=== PATIENT | male | born 1935 | race Caucasian/White ===

== ENCOUNTER → 2018-03-04 | Outpatient (CLI) | payer MEDICARE, OTHER ==
[~2018-03-04] MED LIST: ASCO60LO PO; ASPI-496 PO; CALC600T4 PO; CHOL2000 PO; ESOM40CA PO; ETAN50DI2 INJ; HYDR1TAB20 PO; MAGN500C9 PO; NIAC1000 PO; POTA99TA8 PO; ROSU5TAB PO; VITA1TAB3 PO; cough medicine PO
== END | disposition home or self-care (01) ==
LOC: CFH 15:33
PROVIDERS: ATTEND Orthopaedic Surgery
DX: M94.262 Chondromalacia, left knee (principal); M94.261 Chondromalacia, right knee; M25.461 Effusion, right knee; M25.462 Effusion, left knee

== ENCOUNTER → 2018-06-02 | Outpatient (CLI) | payer MEDICARE, OTHER | END | disposition home or self-care (01) | LOC: CFH 06:41 | PROVIDERS: ATTEND Nurse Practitioner Family | DX: G31.9 Degenerative disease of nervous system, unspecified (principal) | CPT/HCPCS: 70551 ==

== ENCOUNTER → 2018-11-22 | Outpatient (CLI) | payer MEDICARE, OTHER ==
[2018-11-22 13:15] LABS: BASOPHILS # (AUTO) 0.01 x10^3/uL (0-0.1); BASOPHILS % (AUTO) 0 % (0-1); EOSINOPHILS # (AUTO) 0.07 x10^3/uL (0-0.4); EOSINOPHILS % (AUTO) 2 % (1-7); LYMPHOCYTES # (AUTO) 1.11 x10^3/uL (1-3.4); LYMPHOCYTES % (AUTO) 27 % (22-44); MD NO; MEAN CORPUSCULAR HEMOGLOBIN 30.1 pg (27.5-34.5); MEAN CORPUSCULAR HGB CONC 33.4 g/dL (33.2-36.2); MEAN PLATELET VOLUME 10.8 fL (7.4-10.4); MONOCYTES # (AUTO) 0.49 x10^3/uL (0.2-0.8); MONOCYTES % (AUTO) 12 % (2-9); NEUTROPHILS # (AUTO) 2.39 x10^3/uL (1.8-6.8); NEUTROPHILS % (AUTO) 59 % (42-75); PLATELET COUNT 122 x10^3/uL (130-400); RED BLOOD COUNT 4.46 x10^6/uL (4.38-5.82); RED CELL DISTRIBUTION WIDTH 15.2 % (9.4-14.8)
[2018-11-22 13:19] LABS: ALANINE AMINOTRANSFERASE 28 U/L (12-78); ALBUMIN 3.6 g/dL (3.4-5.0); ANION GAP 4 mmol/L (5-15); CALCIUM 8.6 mg/dL (8.5-10.1); CHLORIDE 106 mmol/L (98-107); CREATININE 0.86 mg/dL (0.7-1.3)
[2018-11-22 13:21] LABS: ALKALINE PHOSPHATASE 92 U/L (45-117); BILIRUBIN,TOTAL 1.5 mg/dL (0.2-1.0); TOTAL PROTEIN 6.9 g/dL (6.4-8.2)
== END | disposition home or self-care (01) ==
LOC: CFH 10:35
PROVIDERS: ATTEND Internal Medicine Cardiovascular Disease
DX: I10 Essential (primary) hypertension (principal); E78.2 Mixed hyperlipidemia
CPT/HCPCS: 36415; 80053; 85025

== ENCOUNTER 2019-10-31 12:23 | Outpatient (CLI) | payer MEDICARE, OTHER ==
[~2019-10-31 12:23] MED LIST changes: +REGADENOSON 0.4 MG/5 ML SYRINGE ONE
== END 2019-10-31 23:59 | disposition home or self-care (01) ==
LOC: CFH 12:23
PROVIDERS: ATTEND Internal Medicine Cardiovascular Disease
DX: I25.10 Atherosclerotic heart disease of native coronary artery without angina pectoris (principal)
CPT/HCPCS: 78452; 93017; A9502; J2785

== ENCOUNTER → 2020-04-23 | Outpatient (CLI) | payer MEDICARE, OTHER ==
[~2020-04-23] MED LIST changes: -CALC600T4 PO; +CALC600T60 PO; -REGADENOSON 0.4 MG/5 ML SYRINGE ONE
== END | disposition home or self-care (01) ==
LOC: CFH 12:46
PROVIDERS: ATTEND Internal Medicine Cardiovascular Disease
DX: I08.0 Rheumatic disorders of both mitral and aortic valves (principal); I25.10 Atherosclerotic heart disease of native coronary artery without angina pectoris; I10 Essential (primary) hypertension
CPT/HCPCS: 93306

== ENCOUNTER 2021-02-22 20:25 | Inpatient (IN) | payer MEDICARE, OTHER ==
[~2021-02-22] VITALS: Ht 175.3 cm; Wt 73.7 kg
--- NOTE | 2021-02-23 01:19 | NUR ---
PT WHEELED TO ROOM. PT A&OX4, AND C/O PAIN TO RIGHT HIP AREA. SAYS HIS PAIN IS NOT IN THE NORMAL SPOT, AFTER HE HAD A GROUND LEVEL FALL WHEN HE GOT OUT OF BED YESTERDAY. PT SAYS HE FELT DIZZY HE GOT UP TOO QUICKLY, AND THEN SAT BACK TO BED AND "SLID" DOWN TO THE FLOOR BUT HIT THE FLOOR ENOUGH TO CAUSE PAIN.
--- NOTE | 2021-02-23 06:22 | NUR ---
pt wheeled to restroom. pt able to use restroom independently. mri screening done, awaiting mri. no other needs at this time
--- NOTE | 2021-02-23 07:06 | NUR ---
REPORT GIVEN TO DAVINA CROWE
--- NOTE | 2021-02-23 08:10 | NUR ---
PT TO MRI WITH TECH TRANSPORT.
--- NOTE | 2021-02-23 09:41 | NUR ---
PT RTD FROM MRI. RESULTS PENDING, VSS AND CALL LIGHT W/I REACH. MEAL TRAY PROVIDED AFTER GETTING CLEARANCE FROM DR. MANRIQUEZ THAT PT CN EAT.
--- NOTE | 2021-02-23 11:09 | NUR ---
PT AWARE OF PLAN FOR ADMIT.
[2021-02-23] MEDS ORDERED: SODIUM CHLORIDE FLUSH 10ML SYR IVF ONE (11:30)
[2021-02-23] MEDS ORDERED: MORPHINE SULFATE 4 MG/ML, 1ML IVPush PRN (11:30)
[2021-02-23 11:56] LABS: ANION GAP 7 mmol/L (5-15); CALCIUM 8.5 mg/dL (8.5-10.1); CHLORIDE 100 mmol/L (98-107); CREATININE 0.67 mg/dL (0.7-1.3)
[2021-02-23 11:57] LABS: BASOPHILS % (AUTO) 0 % (0-1); EOSINOPHILS % (AUTO) 4 % (1-7); LYMPHOCYTES % (AUTO) 18 % (22-44); MEAN CORPUSCULAR HEMOGLOBIN 31.2 pg (27.5-34.5); MEAN CORPUSCULAR HGB CONC 33.4 g/dL (33.2-36.2); MEAN PLATELET VOLUME 9.7 fL (7.4-10.4); MONOCYTES % (AUTO) 13 % (2-9); NEUTROPHILS % (AUTO) 65 % (42-75); PLATELET COUNT 86 x10^3/uL (130-400); RED BLOOD COUNT 4.45 x10^6/uL (4.38-5.82); RED CELL DISTRIBUTION WIDTH 16.4 % (9.4-14.8)
[2021-02-23] MEDS ORDERED: FENTANYL PF 100 MCG/2ML ONE ×2 (12:52→13:54)
[2021-02-23] MEDS ORDERED: LABETALOL 5MG/ML, 20ML IV PRN (13:00)
[2021-02-23] MEDS ORDERED: HYDROmorphone 1 MG/ML, 1ML INJ IVPush PRN (13:00)
[2021-02-23] MEDS ORDERED: FENTANYL PF 100 MCG/2ML IV PRN (13:00)
[2021-02-23] MEDS ORDERED: ALBUTEROL SULFATE 2.5 MG/3 ML NPPB PRN (13:00)
[2021-02-23] MEDS ORDERED: OXYcodone 5 MG/5 ML ORAL.SOL UDC PO PRN (13:00)
[2021-02-23] MEDS ORDERED: PROMETHAZINE 25 MG/ML, 1ML IVPush PRN (13:00)
[2021-02-23] MEDS ORDERED: MIDAZOLAM 1 MG/ML, 2ML IV PRN (13:00)
[2021-02-23] MEDS ORDERED: ACETAMINOPHEN 325 MG TABLET PO PRN ×2 (13:00→17:30)
[2021-02-23] MEDS ORDERED: EPHEDRINE 50 MG/ML, 1ML ONE (13:11)
[2021-02-23] MEDS ORDERED: DEXAMETHASONE 4 MG/ML, 1ML ONE (13:30)
[2021-02-23] MEDS ORDERED: CEFAZOLIN 1,000 MG ONE (13:30)
[2021-02-23] MEDS ORDERED: ONDANSETRON 2MG/ML, 2ML ONE (13:30)
[2021-02-23] MEDS ORDERED: PROPOFOL 10 MG/ML, 20ML ONE (13:30)
[2021-02-23] MEDS ORDERED: OXYcodone 5 MG/5 ML ORAL.SOL UDC ONE (13:54)
[2021-02-23] MEDS ORDERED: hydrALAzine 20 MG/ML, 1ML ONE (14:11)
[2021-02-23] MEDS ORDERED: hydrALAzine 20 MG/ML, 1ML IV PRN (14:30)
[2021-02-23 16:03] LABS: INTERNATIONAL NORMALIZED RATIO 1.09 (0.93-1.1); PROTHROMBIN TIME 11.6 Seconds (9.6-11.5)
[2021-02-23] MEDS ORDERED: ENOXAPARIN 40 MG/0.4 ML SQ SCH ×2 (17:30→18:00)
[2021-02-23] MEDS ORDERED: morphine SULFATE 10 MG/ML, 1ML IVPush PRN (17:30)
[2021-02-23] MEDS ORDERED: ONDANSETRON ODT 4 MG PO PRN (17:30)
[2021-02-23] MEDS ORDERED: ONDANSETRON 2MG/ML, 2ML IVPush PRN (17:30)
[2021-02-23 18:23] VITALS: BP 132/67
[2021-02-23] MEDS: ENOXAPARIN 40 MG/0.4 ML SQ SCH (19:39)
[2021-02-23] MEDS ORDERED: ZOLPIDEM 5MG TABLET PO PRN (20:30)
[2021-02-23 20:34] VITALS: BP 120/62
[2021-02-23] MEDS: CEFAZOLIN PMX 1GM/50ML 50 ML IV SCH (21:42)
[2021-02-24 01:33] VITALS: BP 112/60
[2021-02-24] MEDS: CEFAZOLIN PMX 1GM/50ML 50 ML IV SCH (04:48)
[2021-02-24] MEDS: PANTOPRAZOLE 40MG TABLET PO SCH (05:18)
[2021-02-24 06:11] LABS: BASOPHILS % (AUTO) 0 % (0-1); CHLORIDE 97 mmol/L (98-107); EOSINOPHILS % (AUTO) 0 % (1-7); LYMPHOCYTES % (AUTO) 7 % (22-44); MEAN CORPUSCULAR HEMOGLOBIN 31.7 pg (27.5-34.5); MEAN CORPUSCULAR HGB CONC 33.6 g/dL (33.2-36.2); MEAN PLATELET VOLUME 9.6 fL (7.4-10.4); MONOCYTES % (AUTO) 9 % (2-9); NEUTROPHILS % (AUTO) 84 % (42-75); PLATELET COUNT 89 x10^3/uL (130-400); RED BLOOD COUNT 3.54 x10^6/uL (4.38-5.82); RED CELL DISTRIBUTION WIDTH 16.2 % (9.4-14.8)
[2021-02-24 06:18] LABS: ANION GAP 6 mmol/L (5-15); CALCIUM 8.4 mg/dL (8.5-10.1); CREATININE 0.86 mg/dL (0.7-1.3)
[2021-02-24 08:00] VITALS: BP 137/71
[2021-02-24] MEDS ORDERED: ENOXAPARIN 40 MG/0.4 ML SQ SCH (09:00)
[2021-02-24] MEDS: ASPIRIN 81 MG TABLET EC PO SCH (09:35)
[2021-02-24] MEDS: CALCIUM CARBONATE 500 MG TAB.CHEW PO SCH (09:36)
[2021-02-24] MEDS: CHOLECALCIFEROL 1,000 UNIT TABLET PO SCH (09:36)
[2021-02-24] MEDS: ASCORBIC ACID 500 MG TABLET PO SCH (09:36)
[2021-02-24] MEDS: ATORVASTATIN 20 MG TABLET PO SCH (13:00)
[2021-02-24 13:18] VITALS: BP 99/57
[2021-02-24] MEDS ORDERED: ESCI10TA10 PO (14:07)
[2021-02-24 14:15] VITALS: BP 120/63
[2021-02-24] MEDS: SODIUM CHLORIDE 0.9% 1,000 ML IV SCH (15:46)
[2021-02-24] MEDS: LORazepam 1MG TABLET PO PRN (15:54)
[2021-02-24 20:12] VITALS: BP 110/62
[2021-02-24] MEDS: ENOXAPARIN 40 MG/0.4 ML SQ SCH (20:19)
[2021-02-25 01:34] VITALS: BP 102/60
[2021-02-25] MEDS: SODIUM CHLORIDE 0.9% 1,000 ML IV SCH (04:08)
[2021-02-25] MEDS: PANTOPRAZOLE 40MG TABLET PO SCH (05:36)
[2021-02-25 05:48] LABS: ANION GAP 6 mmol/L (5-15); CALCIUM 8.2 mg/dL (8.5-10.1); CHLORIDE 101 mmol/L (98-107)
[2021-02-25 05:49] LABS: CREATININE 0.73 mg/dL (0.7-1.3)
[2021-02-25 07:20] VITALS: BP 135/63
[2021-02-25] MEDS: ASPIRIN 81 MG TABLET EC PO SCH (09:33)
[2021-02-25] MEDS: ATORVASTATIN 20 MG TABLET PO SCH (09:33)
[2021-02-25] MEDS: CHOLECALCIFEROL 1,000 UNIT TABLET PO SCH (09:34)
[2021-02-25] MEDS: ASCORBIC ACID 500 MG TABLET PO SCH (09:34)
[2021-02-25] MEDS: CALCIUM CARBONATE 500 MG TAB.CHEW PO SCH (09:34)
[2021-02-25] MEDS ORDERED: ESCITALOPRAM 10MG TABLET ONE (09:42)
[2021-02-25] MEDS: OXYcodone IR 5MG TABLET PO PRN ×2 (09:56→23:35)
[2021-02-25] MEDS: ESCITALOPRAM 10MG TABLET PO SCH (09:56)
[2021-02-25] MEDS ORDERED: FENTANYL PF 100 MCG/2ML ONE (10:35)
[2021-02-25] MEDS ORDERED: MIDAZOLAM 1 MG/ML, 5ML ONE (10:35)
[2021-02-25] MEDS ORDERED: VANCOMYCIN 1,000 MG ONE (10:36)
[2021-02-25] MEDS ORDERED: VANCOMYCIN 500 MG ONE (10:36)
[2021-02-25] MEDS ORDERED: LIDOCAINE 2%, 20ML ONE (10:36)
[2021-02-25 12:33] LABS: BASOPHILS % (AUTO) 0 % (0-1); EOSINOPHILS % (AUTO) 2 % (1-7); LYMPHOCYTES % (AUTO) 15 % (22-44); MEAN CORPUSCULAR HEMOGLOBIN 31.3 pg (27.5-34.5); MEAN CORPUSCULAR HGB CONC 33.2 g/dL (33.2-36.2); MEAN PLATELET VOLUME 9.5 fL (7.4-10.4); MONOCYTES % (AUTO) 13 % (2-9); NEUTROPHILS % (AUTO) 70 % (42-75); PLATELET COUNT 100 x10^3/uL (130-400); RED BLOOD COUNT 3.12 x10^6/uL (4.38-5.82); RED CELL DISTRIBUTION WIDTH 15.7 % (9.4-14.8)
[2021-02-25 12:45] VITALS: BP 105/58
[2021-02-25] MEDS ORDERED: MAGNESIUM HYDROXIDE 8%, 30ML UDC PO PRN (14:00)
[2021-02-25] MEDS ORDERED: SENNA/DOCUSATE TABLET PO PRN (14:00)
[2021-02-25] MEDS: ENOXAPARIN 40 MG/0.4 ML SQ SCH (19:54)
[2021-02-25 20:44] VITALS: BP 125/70
[2021-02-25] MEDS: LORazepam 1MG TABLET PO PRN (21:42)
[2021-02-26 01:00] VITALS: BP 127/53
[2021-02-26 05:21] LABS: ALBUMIN 2.5 g/dL (3.4-5.0); ANION GAP 7 mmol/L (5-15); CALCIUM 7.9 mg/dL (8.5-10.1); CHLORIDE 102 mmol/L (98-107); CREATININE 0.69 mg/dL (0.7-1.3)
[2021-02-26 05:25] LABS: BASOPHILS % (AUTO) 0 % (0-1); EOSINOPHILS % (AUTO) 3 % (1-7); LYMPHOCYTES % (AUTO) 21 % (22-44); MEAN CORPUSCULAR HEMOGLOBIN 31.7 pg (27.5-34.5); MEAN CORPUSCULAR HGB CONC 34.1 g/dL (33.2-36.2); MEAN PLATELET VOLUME 9.4 fL (7.4-10.4); MONOCYTES % (AUTO) 14 % (2-9); NEUTROPHILS % (AUTO) 62 % (42-75); PLATELET COUNT 80 x10^3/uL (130-400); RED BLOOD COUNT 2.63 x10^6/uL (4.38-5.82); RED CELL DISTRIBUTION WIDTH 15.8 % (9.4-14.8)
[2021-02-26] MEDS: PANTOPRAZOLE 40MG TABLET PO SCH (05:34)
[2021-02-26 08:00] VITALS: BP 102/51
[2021-02-26] MEDS: ASCORBIC ACID 500 MG TABLET PO SCH (09:10)
[2021-02-26] MEDS: CALCIUM CARBONATE 500 MG TAB.CHEW PO SCH (09:10)
[2021-02-26] MEDS: CHOLECALCIFEROL 1,000 UNIT TABLET PO SCH (09:10)
[2021-02-26] MEDS: ATORVASTATIN 20 MG TABLET PO SCH (09:11)
[2021-02-26] MEDS: ASPIRIN 81 MG TABLET EC PO SCH (09:11)
[2021-02-26] MEDS: ESCITALOPRAM 10MG TABLET PO SCH (09:11)
[2021-02-26 14:52] VITALS: BP 105/61
[2021-02-26] MEDS ORDERED: OXYC5TAB2 PO (16:42)
[2021-02-26] MEDS ORDERED: DOCU-131 PO (16:42)
== END 2021-02-26 16:50 | disposition home health service (06) | DRG 481 ==
LOC: ED 02-23 01:18 → OBSVTOIN 02-23 02:10 → EDIP 02-23 02:10 → 3N 02-23 11:22 → 4EST 02-23 18:05 → 5SO 02-24 13:15
PROVIDERS: ADMIT Emergency Medicine; ATTEND Family Medicine
PROC: 0QS706Z Reposition Left Upper Femur with Intramedullary Internal Fixation Device, Open Approach (ICD-10-PCS; principal; 2021-02-23 15:00)
DX: S72.102A Unspecified trochanteric fracture of left femur, initial encounter for closed fracture (principal); E87.1 Hypo-osmolality and hyponatremia; I42.9 Cardiomyopathy, unspecified; M87.9 Osteonecrosis, unspecified; Z20.822 Contact with and (suspected) exposure to COVID-19; D64.9 Anemia, unspecified; D69.6 Thrombocytopenia, unspecified; F41.9 Anxiety disorder, unspecified; G89.11 Acute pain due to trauma; I25.10 Atherosclerotic heart disease of native coronary artery without angina pectoris; Z96.641 Presence of right artificial hip joint; F32.9 Major depressive disorder, single episode, unspecified; I49.5 Sick sinus syndrome; Z79.899 Other long term (current) drug therapy; Z86.16 Personal history of COVID-19; I25.2 Old myocardial infarction; Z87.891 Personal history of nicotine dependence; Z90.49 Acquired absence of other specified parts of digestive tract; Z95.5 Presence of coronary angioplasty implant and graft; Z88.0 Allergy status to penicillin; W18.39XA Other fall on same level, initial encounter; Y93.89 Activity, other specified; Y92.89 Other specified places as the place of occurrence of the external cause; Y99.8 Other external cause status
CPT/HCPCS: 36415; 76000; 80048; 80069; 83735; 85025; 85610; 87635; 93005; 93306; 93356; 96374; 96375; 99285; C1713; G0378; J0690; J1100; J1650; J2250; J2405; J2704; J3010; J3370; J0360; J2270; J7030

== ENCOUNTER 2021-03-08 14:57 | Outpatient (CLI) | payer MEDICARE, OTHER | END 2021-03-08 23:59 | disposition home or self-care (01) | LOC: LAB 14:57 | PROVIDERS: ATTEND Internal Medicine | DX: D64.9 Anemia, unspecified (principal) ==